=== PATIENT | female | born 1975 | race African-American/Black ===

== ENCOUNTER 2021-02-01 12:03 | Inpatient (IN) | payer OTHER ==
[~2021-02-01] VITALS: Ht 172.7 cm; Wt 53.1 kg
[2021-02-01 12:30] VITALS: BP 93/63
[2021-02-01] MEDS ORDERED: GRALISE300 MG PO (12:36)
[2021-02-01] MEDS ORDERED: JANUVIA50 MG PO (12:36)
[2021-02-01] MEDS ORDERED: K-TAB10 MEQ PO (12:37)
[2021-02-01] MEDS ORDERED: SERTRALINE HCL100 MG PO (12:37)
[2021-02-01 13:14] LABS: ABSOLUTE NEUTROPHILS 2.3 thou/uL (1.4-8.2); BASOPHILS 0.9 % (0.0-2.0); EOSINOPHILS 2.4 % (0.0-3.0); HEMATOCRIT 34.7 % (37.0-47.0); HEMOGLOBIN 11.7 gm/dL (12.0-15.0); LYMPHOCYTES 33.5 % (24.0-44.0); MCH 34.6 pg (26.0-34.0); MCHC 33.7 g/dL (28.0-37.0); MCV 102.5 fL (80.0-100.0); MONOCYTES 7.5 % (1.0-8.0); PLATELET COUNT 263 thou/uL (150-400); POLYS 55.7 % (36.0-66.0); RBC 3.39 mil/uL (4.20-5.00); RDW 16.2 % (10.5-14.5); WBC 4.1 thou/uL (4.0-11.0)
[2021-02-01 13:27] LABS: CALCIUM 8.4 mg/dL (8.5-10.1); CREATININE 0.7 mg/dL (0.6-1.0); POTASSIUM 3.5 mmol/L (3.5-5.1)
[2021-02-01 13:32] LABS: URINE BILIRUBIN NEGATIVE (Negative); URINE BLOOD NEGATIVE (Negative); URINE CLARITY CLEAR; URINE COLOR YELLOW; URINE GLUCOSE-RANDOM* NEGATIVE (Negative); URINE KETONES NEGATIVE (Negative); URINE LEUKOCYTES-REFLEX NEGATIVE (Negative); URINE NITRITE-REFLEX NEGATIVE (Negative); URINE PROTEIN (DIPSTICK) TRACE (Negative); URINE SPECIFIC GRAVITY <= 1.005 (1.005-1.035); URINE UROBILINOGEN 0.2 E.U./dl (0.2-1.0)
[2021-02-01 13:34] LABS: TOTAL BILIRUBIN 0.2 mg/dL (0.2-1.0); TOTAL PROTEIN 6.3 g/dL (6.4-8.2)
[2021-02-01 17:01] VITALS: BP 104/74
[2021-02-01 17:12] VITALS: BP 104/74
[2021-02-01 17:31] LABS: FOLIC ACID 2.1 ng/mL (8.6-58.9)
[2021-02-01 17:53] VITALS: BP 110/72
[2021-02-01 18:24] VITALS: BP 115/78
--- NOTE | 2021-02-01 19:07 | NUR ---
ASSUMED PT CARE AT 1820 FROM ER. PT IS ALERT & ORIENTED X4. PT HAS IV SITE ON L FA. PT IS ON ROOM AIR. PT IS ACCUCHECK ACHS. PT SIGNED ADMISSION CONSENT. TOOK VS AND GIVEN IV FLUIDS ORDERED. PT ON THE BED, BED ON THE LOWEST POSITION, SIDE RAILS UP, CALL LIGHT WITHIN REACH. WILL CONTINUE TO MONITOR PT. FOLLOW POC. ENDORSE NIGHT NURSE.
[2021-02-01 21:30] VITALS: BP 120/70
--- NOTE | 2021-02-02 05:03 | NUR ---
ADMISSION ASSESSMENT COMPLETED AFTER SHIFT CHANGE. PT ALERT AND ORIENTED. WITH FLAT AFFECT. PT REQUIRES CLOSE SBA ASSIST TO THE BATHROOM. SHE C/O DIZZINESS AND HAS FALLEN A FEW TIMES IN THE RECENT PAST. SHE REPORTS CHRONIC DIARHOEA OF ABOUT 15 EPISODES A DAY. SHE REPORTS LOSS OF >40 POUNDS IN THE LAST MONTH. SHE IS FRAIL LOOKING. REPORTS INTAKE OF ENSURE AND A SPORTS DRINK FOR NUTRITION DAILY. DENIES NAUSEA. VOIDING OKAY-DENIES ANY DISCOMFORT. AFEBRILE. ON ROOM AIR, NO COUGH OR ANY FORM OF RESP DISTRESS. ENDORSES NIGHT SWEATS FOR THE PAST WEEKS AND HAD AN EPISODE TONIGHT.NO SWALOOING ISSUES NOTED. IV HYDARTION. NPO SINCE MIDNOC. FALL ED PROVIDED, FALL PREC IN PLACE. WILL CONTINUE WITH POC TILL EOS.
[2021-02-02 05:19] LABS: BASOPHILS 0.6 % (0.0-2.0); EOSINOPHILS 1.7 % (0.0-3.0); HEMATOCRIT 34.9 % (37.0-47.0); HEMOGLOBIN 11.7 gm/dL (12.0-15.0); LYMPHOCYTES 40.7 % (24.0-44.0); MCH 34.8 pg (26.0-34.0); MCHC 33.4 g/dL (28.0-37.0); MCV 103.9 fL (80.0-100.0); MONOCYTES 6.2 % (1.0-8.0); PLATELET COUNT 259 thou/uL (150-400); POLYS 50.8 % (36.0-66.0); RBC 3.36 mil/uL (4.20-5.00); RDW 16.7 % (10.5-14.5); WBC 5.9 thou/uL (4.0-11.0)
[2021-02-02 05:30] LABS: CALCIUM 8.1 mg/dL (8.5-10.1); CREATININE 0.6 mg/dL (0.6-1.0); MAGNESIUM 1.5 mg/dL (1.8-2.4); POTASSIUM 4.2 mmol/L (3.5-5.1)
[2021-02-02 07:26] VITALS: BP 122/86
--- NOTE | 2021-02-02 08:54 | NUR ---
Dr. Laguerre voiced that the patient could have PO medication with sip water.
--- NOTE | 2021-02-02 12:13 | NUR ---
INITIAL ASSESSMENT: Received nursing referral. CARLINE reviewed chart and spoke with nursing and attending physician. Pt was admitted from home due to pancreatitis. GI consulted. Pt with recent hx of weight loss/weakness/abdominal pain. Pt to have an EGD tomorrow. SW met with pt at bedside. Introduced role of SW. Pt is alert/orientated x 4. Pt reports she lives at home with her family. Prior to admission, pt was independent with ADLs. No use of DME. Pt states she sees ISAIAS Garcia at [facility], for primary care. Plan is for pt to discharge home when medically stable. SW is following to assist as needed with discharge planning.
[2021-02-02 16:22] VITALS: BP 129/93
--- NOTE | 2021-02-02 17:32 | NUR ---
A/O *4, calm and cooperative, complains of pain in abdomen, back, feet, pain medication given and worked. no n/v. bed rest.
[2021-02-02 19:59] VITALS: BP 125/79
--- NOTE | 2021-02-03 04:59 | NUR ---
RECIECED CARE OF THIS PATIENT AT 1900. PATIENT ALERT AND ORIENTED X4. UP TO BSC WITH ASSIST OF ONE. C/O PAIN, ANTHONY GIVEN. ACCUCHECK WAS 191, RECIEVED 3 UNIT LISPRO INSULIN. NPO SINCE [place] FOR CT OF ABD. SLEPT VERY LITTLE THIS SHIFT.
[2021-02-03 07:22] VITALS: BP 123/78
[2021-02-03 07:30] VITALS: BP 123/78
--- NOTE | 2021-02-03 12:05 | NUR ---
ASSUMED PT CARE AROUND 07. PT ALERT X ORIENTED X 4. ON ROOM AIR. STAND BY ASST TO BEDSIDE COMMODE. ACCUCHECK AND ACHS. IV LF FA/ NS/100MLS/HR.PT WENT FOR EGD AROUND 0945. PT'S PAIN IN ABDOMEN RADIATING FROM LEFT SIDE TO BACK. IV GOT REPORT FROM PACU AROUND 1200 SAYING EGD WAS NORMAL, TOOK SOME BIOPSY FOR H.PYLORI.VSS. WILL CONTINUE TO MONITOR.
[2021-02-03 15:33] VITALS: BP 132/92
[2021-02-03 19:30] VITALS: BP 111/67
[2021-02-04 04:44] LABS: HEMOGLOBIN 10.7 gm/dL (12.0-15.0); MCH 35.6 pg (26.0-34.0); MCHC 34.4 g/dL (28.0-37.0); MCV 103.4 fL (80.0-100.0); RDW 16.4 % (10.5-14.5); WBC 6.3 thou/uL (4.0-11.0)
[2021-02-04 04:46] LABS: CALCIUM 8.1 mg/dL (8.5-10.1); CREATININE 0.5 mg/dL (0.6-1.0); POTASSIUM 4.1 mmol/L (3.5-5.1)
--- NOTE | 2021-02-04 04:56 | NUR ---
RECEIVED CARE OF THIS PATIENT AT 1900. PATIENT ALERT AND ORIENTED X4. UP TO BATHROOM WITH SBA. C/O PAIN, MED GIVEN. ACCUCHECK WAS 175, RECEIVED 3 UNITS OF LISPRO INSULIN. IV PATIENT IN LFA WITH FLUIDS INFUSING. SLEPT LITTLE THIS SHIFT.
[2021-02-04 07:10] VITALS: BP 118/86
[2021-02-04] MEDS ORDERED: HYDROCODON-ACE1 EAC7 PO (11:10)
[2021-02-04] MEDS ORDERED: CLOTRIMAZOLE10 MG PO (11:11)
[2021-02-04] MEDS ORDERED: PROTONIX 20 MG20 M1 PO (11:11)
[2021-02-04] MEDS ORDERED: CHANTIX1 EACH PO (11:12)
[2021-02-04 11:31] VITALS: BP 118/86
--- NOTE | 2021-02-04 14:47 | NUR ---
ASSUMED PT CARE THIS AM. PT IS ALERT & ORIENTED X4. PT HAS IV SITE ON L FA RUNNING NS @100ML/HR. PT C/O OF PAIN AND GIVEN PAIN MEDICATION PER PT REQUEST. PT ACCIDENTALLY REMOVED IV AT 1000. PT IS ACCUCHECK ACHS. PT HAD BM DURING THE SHIFT. PT TOLERATED DIET AND INFORMED MD. EDUCATED AND INFORMED PT ABOUT DISCHARGE INSTRUCTIONS SUCH PANCREATITIS EATING PLAN, MEDICATION AND WHEN TO FOLLOW UP OWN DR. GIVEN MEDICATION PRESCRIPTION AND PANCREATITIS EATING PLAN. PT SIGNED DISCHARGE FORMS. WHEEL PT DOWN. PT DISCHARGED TODAY.
--- NOTE | 2021-02-06 17:06 | PATH ---
[facility] [address] [place] [address] PATHOLOGY RPT PROCEDURE Name: ENA,RYLEE D Room #: 458-P [facility] [place] M.R.#: [id number] Admission: 02/01/21 Date of : 73 Discharge: 02/04/21 Report #: [id number] Path Case #: [id number] [facility] Accession Number: [id number] . 01 Material submitted: . gastrointestinal site - BIOPSY OF GASTRITIS . 01 Clinical history: . DYSPHAGIA . 02 Diagnosis: Gastric mucosa, gastritis to rule out H. pylori, endoscopic biopsy: - Helicobacter pylori-induced moderate active gastritis. - Negative for intestinal metaplasia or atrophy. - Helicobacter pylori immunohistochemical stain (properly controlled) positive. ([facility]; 02/06/2021) MBR 02/06/2021 1247 Local . 02 Electronically signed: . Rasheeda Del Toro MD, Pathologist NPI- [id number] . 01 Gross description: . Received in formalin labeled "Rylee Be, biopsy of gastritis rule H. pylori" are multiple romero-brown soft tissue fragments measuring in aggregate 1.3 x 0.7 x 0.3 cm. The specimen is submitted entirely in A1. ([facility]; 02/04/2021) GZA/GZA 02/04/2021 1040 Local . 02 Pathologist provided ICD-10: K29.60, B96.81 . 02 CPT . 434233, [id number] Specimen Comment: A courtesy copy of this report has been sent to [phone] Specimen Comment: 2008 Specimen Comment: Report sent to / Performed at: [address], [place] [id number] MD Chon James MD Phone: [phone] Performed at: [address] [id number] MD Rasheeda Del Toro MD Phone: [phone]
--- NOTE | 2021-02-08 08:06 | P ---
[facility] [place] [address] PROCEDURE REPORT Name: RYLEE SUTHERLAND Nicholas Room #: 458-P [facility].#: [id number] Admission: 02/01/21 Attend Phys: Abilio Laguerre MD Discharge: 02/04/21 Date of : 73 Report #: [id number] THIS REPORT FOR: cc: FAM - Family physician unknown FAM - Family physician unknown Armani Kirkland MD ~ DOC #: [id number] cc: MD Armani Heath MD DATE OF SERVICE: 02/03/2021 PROCEDURE PERFORMED: Upper endoscopy with biopsies. HISTORY OF PRESENT ILLNESS: The patient is a 45-year-old female who was admitted with abdominal pain and weight loss. Also, complains of odynophagia. CT scan of the abdomen and pelvis showed fat stranding and inflammation along the body and tail of the pancreas. She has had significant diarrhea as well. She had a mildly elevated lipase of 456. She was taking ibuprofen 800 mg t.i.d. Lipase today is normal at 385. Plan is for upper endoscopy. DESCRIPTION OF PROCEDURE: The risks and benefits of the procedure were explained to the patient, those risks including but not limited to bleeding, perforation and the risk of sedation. She understood these risks and gave informed consent. Sedation was given using propofol per anesthesia. Next, using a standard Olympus upper endoscope, the scope was placed in the patient's mouth and advanced under direct vision through the esophagus, stomach and into the second portion of the duodenum. The esophagus was normal throughout. The GE junction was normal. In the stomach, mild gastritis was noted in the antrum with several small erosions. No evidence of ulcerations or bleeding. Biopsies were obtained to rule out the possibility of H. pylori. The pylorus was normal and patent. The duodenal bulb, first and second portion were all normal. The scope was then slowly withdrawn, possible thrush was noted in the oropharynx area. The scope was withdrawn and the procedure terminated. The patient tolerated the procedure well. IMPRESSION: 1. Possible oral thrush. 2. Mild gastritis with several antral erosions. 3. Otherwise, normal upper endoscopy. RECOMMENDATIONS: 1. Await biopsy results. 2. Recommend daily PPI therapy. 3. Will add Mycelex troches at this time. 4. The patient with recent pancreatitis. This is improving. She continues to [address] [address] PROCEDURE REPORT Name: RYLEE SUTHERLAND Room #: 458-P [facility] [place] ..#: [id number] Admission: 02/01/21 Attend Phys: Abilio Laguerre MD Discharge: 02/04/21 Date of : 73 Report #: [id number] have abdominal pain, we will advance diet as tolerated. Thank you for allowing me to participate in her care. Armani Kirkland MD CCM/URIAH <ELECTRONICALLY SIGNED> By: Armani Kirkland MD 02/08/21 0806 1136 0256 Armani Kirkland MD /nt
== END 2021-02-04 15:24 | disposition home or self-care (01) | DRG 377 ==
LOC: ER 12:03 → 4S 16:27 → EROBS 16:27 → 4S 18:13 → 4W 02-02 16:37
PROVIDERS: Emergency Medicine; Nurse Practitioner; ADMIT Hospitalist; ATTEND Hospitalist
PROC: 0DB68ZX Excision of Stomach, Via Natural or Artificial Opening Endoscopic, Diagnostic (ICD-10-PCS; principal; 2021-02-03)
DX: K29.71 Gastritis, unspecified, with bleeding (principal); E43 Unspecified severe protein-calorie malnutrition; K85.20 Alcohol induced acute pancreatitis without necrosis or infection; Z68.1 Body mass index [BMI] 19.9 or less, adult; K25.4 Chronic or unspecified gastric ulcer with hemorrhage; G43.909 Migraine, unspecified, not intractable, without status migrainosus; E11.9 Type 2 diabetes mellitus without complications; M79.10 Myalgia, unspecified site; B37.9 Candidiasis, unspecified; F10.10 Alcohol abuse, uncomplicated; Y90.9 Presence of alcohol in blood, level not specified; F32.9 Major depressive disorder, single episode, unspecified; F17.210 Nicotine dependence, cigarettes, uncomplicated; R63.4 Abnormal weight loss; Z20.822 Contact with and (suspected) exposure to COVID-19; Z79.899 Other long term (current) drug therapy; Z79.84 Long term (current) use of oral hypoglycemic drugs; Z88.8 Allergy status to other drugs, medicaments and biological substances; Z80.9 Family history of malignant neoplasm, unspecified
CPT/HCPCS: 10040; 10195; 62110; 62900; 70005

== ENCOUNTER 2021-02-08 18:42 | Emergency (ER) | payer OTHER ==
[~2021-02-08] VITALS: Ht 172.7 cm; Wt 53.1 kg
[~2021-02-08 18:42] MED LIST: CHANTIX1 EACH PO; CLOTRIMAZOLE10 MG PO; GRALISE300 MG PO; HYDROCODON-ACE1 EAC7 PO; JANUVIA50 MG PO; K-TAB10 MEQ PO; PROTONIX 20 MG20 M1 PO; SERTRALINE HCL100 MG PO
[2021-02-08 19:30] LABS: ABSOLUTE NEUTROPHILS 3.3 thou/uL (1.4-8.2); BASOPHILS 0.6 % (0.0-2.0); EOSINOPHILS 0.5 % (0.0-3.0); HEMATOCRIT 37.2 % (37.0-47.0); HEMOGLOBIN 12.3 gm/dL (12.0-15.0); LYMPHOCYTES 23.5 % (24.0-44.0); MCH 34.6 pg (26.0-34.0); MCHC 33.2 g/dL (28.0-37.0); MCV 104.4 fL (80.0-100.0); MONOCYTES 6.7 % (1.0-8.0); PLATELET COUNT 341 thou/uL (150-400); POLYS 68.7 % (36.0-66.0); RBC 3.56 mil/uL (4.20-5.00); RDW 16.8 % (10.5-14.5); WBC 4.8 thou/uL (4.0-11.0)
[2021-02-08 20:03] LABS: CALCIUM 8.1 mg/dL (8.5-10.1); CREATININE 0.6 mg/dL (0.6-1.0); POTASSIUM 3.4 mmol/L (3.5-5.1)
[2021-02-08 20:09] LABS: ALBUMIN 3.1 g/dL (3.4-5.0); MAGNESIUM 1.3 mg/dL (1.8-2.4); TOTAL BILIRUBIN 0.2 mg/dL (0.2-1.0); TOTAL PROTEIN 6.3 g/dL (6.4-8.2)
[2021-02-08 20:44] LABS: URINE BILIRUBIN NEGATIVE (Negative); URINE BLOOD NEGATIVE (Negative); URINE CLARITY CLEAR; URINE COLOR YELLOW; URINE GLUCOSE-RANDOM* NEGATIVE (Negative); URINE KETONES NEGATIVE (Negative); URINE LEUKOCYTES-REFLEX NEGATIVE (Negative); URINE NITRITE-REFLEX NEGATIVE (Negative); URINE PROTEIN (DIPSTICK) NEGATIVE (Negative); URINE SPECIFIC GRAVITY >= 1.030 (1.005-1.035); URINE UROBILINOGEN 0.2 E.U./dl (0.2-1.0)
[2021-02-08 22:15] VITALS: BP 112/87
== END 2021-02-08 22:15 | disposition home or self-care (01) ==
LOC: ER 18:42
PROVIDERS: Physician Assistant
DX: R10.9 Unspecified abdominal pain (principal); G43.909 Migraine, unspecified, not intractable, without status migrainosus; E11.9 Type 2 diabetes mellitus without complications; F17.210 Nicotine dependence, cigarettes, uncomplicated; Z79.899 Other long term (current) drug therapy